=== PATIENT | male | born 1970 | race Caucasian/White ===

== ENCOUNTER 2018-11-16 19:49 | Emergency (ER) | payer OTHER ==
[~2018-11-16] VITALS: Ht 188 cm; Wt 168.8 kg
--- NOTE | 2018-11-16 19:52 | NUR ---
CALLED FOR TRIAGE. PT IN RESTROOM AT THIS TIME.
--- NOTE | 2018-11-16 20:30 | NUR ---
pt refuses labs and workup, MD Law aware. orders cancelled by .
[2018-11-16 20:37] VITALS: BP 210/96
--- NOTE | 2018-11-16 21:01 | NUR ---
repeat BP reviewed with EDA Halie MD instructed RN to dc pt. Pt given dc instructions and script, educated regarding albuterol inhaler, pseudoephedrine and prednisone rx. pt a&o, resps even and unlabored, nadn. pt amb to dc desk with steady gait, all questions answered.
== END 2018-11-16 21:07 | disposition home or self-care (01) ==
LOC: ED 21:05
DX: H69.81 Other specified disorders of Eustachian tube, right ear (principal); J00 Acute nasopharyngitis [common cold]; J98.01 Acute bronchospasm; I10 Essential (primary) hypertension
CPT/HCPCS: 71046; 93005; 99283